=== PATIENT | male | born 1985 | race Caucasian/White ===

== ENCOUNTER 2018-12-15 17:49 | Emergency (ER) | payer SELFPAY ==
[2018-12-15 17:52] VITALS: BP 195/105; PULSE 111; RESP 22; TEMP 36.3; O2SAT 95; BMI 45.0
--- NOTE | 2018-12-15 18:02 | DI.RAD.S_ITS ---
PROCEDURE: XR RIBS LT MIN 3V W CXR1V INDICATIONS: rib/flank pain TECHNIQUE: 4 views of the left ribs were acquired, along with a single view chest. COMPARISON: None. FINDINGS: Surgical changes and devices: None. Bones and chest wall: No fractures or dislocations. No suspicious bony lesions. Overlying soft tissues appear unremarkable. Lungs and pleura: No pleural effusions or pneumothorax. Lungs appear clear. Mediastinum: Mediastinal contours appear normal. Heart size is normal. IMPRESSION: No displaced rib fractures visualized. No acute cardiopulmonary findings. Dictated by: Darlin Holloway M.D. on 12/15/2018 at 18:30 Approved by: Darlin Holloway M.D. on 12/15/2018 at 18:31
[2018-12-15] MEDS: IBUPROFEN 400 MG TABLET 800 MG PO (18:06)
[2018-12-15 19:30] VITALS: BP 175/90; PULSE 78; RESP 14; O2SAT 98
--- NOTE | 2018-12-15 19:38 | ED.BACK ---
HPI - Back Pain/Injury General Chief Complaint: Back Pain/Injury Stated Complaint: PULLED MUSCLE LOWER LEFT BACK Time Seen by Provider: 12/15/18 19:29 Source: patient Mode of arrival: ambulatory Limitations: no limitations History of Present Illness HPI Narrative: patient is a 33-year-old male with left-sided rib pain. He said he has had some nausea vomiting today as not really eating or drinking anything. He then had a coughing fit and heard something pop on his left side. It became extremely painful every time he took a breath. He did not fall there was no trauma. He has had some Motrin which he says helped the pain. He denies any shortness of breath or productive cough. He says these problems today with vomiting and watery diarrhea which he says is a little bit better. He denies any abdominal pain. MD Complaint: other ( Left-sided rib pain, nausea vomiting diarrhea) Related Data Previous Rx's Medication Instructions Recorded ondansetron 4 mg PO Q8H PRN #10 tab 12/15/18 Allergies Allergy/AdvReac Type Severity Reaction Status Date / Time No Known Allergies Allergy Uncoded 02/17/18 12:57 Review of Systems Review of Systems GENERAL: Denies chills, fatigue, malaise, fever, sweats, travel HEENT: Denies sinus pain, ear pain, sore throat, difficulty swallowing, neck pain RESPIRATORY: see HPI, rib pain CARDIOVASCULAR: Denies chest pain, palpitations, orthopnea, edema GASTROINTESTINAL: see HPI : Denies dysuria, frequency, incontinence, hematuria, urinary retention, flank pain. MUSCULOSKELETAL: Denies weakness, joint pain, or bony pain SKIN: No rash, no erythema, no pruritus NEUROLOGIC: Denies weakness, dizziness, headache, numbness, change in speech, confusion PSYCHIATRIC: No concerning psychosocial issues. 12 point review of systems is negative except for those stated above and HPI PFSH Surgical History History of third molar tooth extraction Family History Brother Age: 31 Drug abuse Father Age: 60 Diabetes mellitus Hypertension ETOHism Mother Age: 60 Hypertension Anxiety Drug abuse Social History Smoking Status: Never smoker Family History Brother Age: 31 Drug abuse Father Age: 60 Diabetes mellitus Hypertension ETOHism Mother Age: 60 Hypertension Anxiety Drug abuse Social History Smoking Status: Never smoker Exam Initial Vital Signs Initial Vital Signs: Vital Signs Temperature 97.3 F L 12/15/18 17:52 Pulse Rate 111 H 12/15/18 17:52 Respiratory Rate 22 12/15/18 17:52 Blood Pressure 195/105 H 12/15/18 17:52 Pulse Oximetry 95 12/15/18 17:52 GENERAL: well-appearing is active overweight male no acute distress HEENT: Head atraumatic,EOMI, pupils reactive, moist mucous membranes CARDIOVASCULAR: Regular rate and rhythm without murmurs, rubs or gallops. RESPIRATORY: Breath sounds equal bilaterally, no wheezes rales or rhonchi. tender left lateral lower ribs no sign of trauma no paradoxical movement tender to touch ABDOMEN: Soft, obese male no significant abdominal pain some mild epigastric pain no guarding no rebound : No CVA tenderness EXTREMITIES: Normal range of motion, no clubbing or edema. Neurovascularly intact NEUROLOGICAL: Alert and oriented x4.Normal gait and speech. SKIN: Warm, dry, no laceration, no petechiae, no rashes or lesions. Course Orders Ordered: ED Orders 12/15/18 18:02 XR ribs LT min 3V w CXR1V Stat Discontinued Medications Ibuprofen (Advil) 800 mg PO NOW ONE Stop: 12/15/18 18:00 Last Admin: 12/15/18 18:06 Dose: 800 mg Vital Signs - 8 hr 12/15/18 17:52 12/15/18 19:30 Temperature 97.3 F L Pulse Rate 111 H 78 Respiratory Rate 22 14 Blood Pressure 195/105 H Blood Pressure [Left Arm] 175/90 H Pulse Oximetry 95 98 MDM - Back Pain/Injury Imaging Data left rib XR: Radiologist's impression: PROCEDURE: XR RIBS LT MIN 3V W CXR1V INDICATIONS: rib/flank pain TECHNIQUE: 4 views of the left ribs were acquired, along with a single view chest. COMPARISON: None. FINDINGS: Surgical changes and devices: None. Bones and chest wall: No fractures or dislocations. No suspicious bony lesions. Overlying soft tissues appear unremarkable. Lungs and pleura: No pleural effusions or pneumothorax. Lungs appear clear. Mediastinum: Mediastinal contours appear normal. Heart size is normal. IMPRESSION: No displaced rib fractures visualized. No acute cardiopulmonary findings. Dictated by: Darlin Holloway M.D. on 12/15/2018 at 18:30 MDM Narrative Medical decision making narrative: Patient does not appear septic or toxic, he is tolerating oral fluids. Here mostly for rib pain which seems to be consistent with costochondritis from recent coughing vomiting episode. Discharge Plan Departure Patient Disposition: Home Clinical Impression: Gastroenteritis, Acute costochondritis Discharge Date/Time: 12/15/18 20:07 Interventions: ED Discharge Assessment Last Done: 12/15/18 20:06 Instructions: Costochondritis, DI for Viral Gastroenteritis -- Adult Activity Restrictions/Additional Instructions: 1) You have been diagnosed with costochondritis and gastroenteritis 2) What to do: Drink frequent but small amounts of fluids. I recommend Gatorade or a Gatorade-like product, as it has small amounts of sugar and salts that improve fluid retention. rib pain should start to improve in the next 1-2 weeks. May try splinting With a pillow. 3) Take medications as directed Zofran 4 mg every 6-8 hours if needed for nausea or vomiting Motrin 600 mg every 6-8 hours if needed for pain 4) Follow up with your primary care provider in 2-3 days 5) Return to ER if you should have any new or worsening symptoms such as, unable to hold down fluids despite use of anti-nausea medications and the small volume oral rehydration strategy. Prescriptions: New ondansetron 4 mg tablet,disintegrating 4 mg PO Q8H PRN (Reason: nausea and vomiting) Qty: 10 RF: 0 Referrals: [facility] [Provider Group]
--- NOTE | 2018-12-15 20:05 | PC.NURSE ---
Neuro intact. No acute distress. States he feels much improved.
== END 2018-12-15 20:07 | disposition home or self-care (01) ==
PROVIDERS: Emergency Provider Emergency Medicine
DX: K52.9 Noninfective gastroenteritis and colitis, unspecified (principal); M94.0 Chondrocostal junction syndrome [Tietze]
CPT/HCPCS: 71101; 99282; 99283

== ENCOUNTER 2020-11-25 16:08 | Emergency (ER) | payer SELFPAY ==
[2020-11-25 16:21] VITALS: BP 136/87; PULSE 85; RESP 20; TEMP 36.3; O2SAT 98; BMI 43.8
--- NOTE | 2020-11-25 16:25 | DI.RAD.S_ITS ---
PROCEDURE: XR LUMBAR SPINE 2-3V INDICATIONS: back pain TECHNIQUE: 3 views of the lumbar spine were acquired. COMPARISON: None. FINDINGS: Bones: 5 [id number] vertebrae are present. There is minimal levoconvex lumbar scoliotic curvature. No focal AP alignment abnormality is seen. No vertebral body compression fractures. No suspicious bony lesions. The disc heights are well preserved. Mild endplate irregularity and sclerosis can be seen at the L1-L2 level, with mild disc space narrowing. Soft tissues: Overlying bowel gas pattern is normal. No suspicious soft tissue calcifications. IMPRESSION: Focal L1-L2 degenerative change. Dictated by: Aleksander Perry M.D. on 11/25/2020 at 15:48 Approved by: Aleksander Perry M.D. on 11/25/2020 at 15:49
[2020-11-25] MEDS: ACETAMINOPHEN 325 MG TABLET 975 MG PO (16:29)
[2020-11-25] MEDS: IBUPROFEN 400 MG TABLET 800 MG PO (16:30)
[2020-11-25 18:48] VITALS: BP 141/82; PULSE 97; RESP 15; O2SAT 97
--- NOTE | 2020-11-25 19:48 | ED.BACK ---
HPI - Back Pain/Injury General Chief Complaint: Back Pain/Injury Stated Complaint: Back/Leg Pain Numbness Time Seen by Provider: 11/25/20 18:03 Source: patient Mode of arrival: Ambulatory Limitations: no limitations History of Present Illness HPI Narrative: 35-year-old male nonsmoker with noncontributory medical history presents for evaluation of low back pain started just a few hours before arrival. He states that he was in a seated position and when attempting get up he did so awkwardly and felt pain in his right lower back. He states it is worse when he moves and improves with rest. He denies any radiation into his lower extremities. He states it is sharp and stabbing and at its most intense, 8/10. He denies any bowel or bladder incontinence. He denies any numbness in his groin nor any lower extremity numbness, tingling or weakness. MD Complaint: back pain and back injury Onset (ago): hour(s) Duration: constant Similar Symptoms Previously: No Location: lumbar spine Severity: severe Quality: sharp and stabbing Radiation: none Relieving factors: immobilization Exacerbating factors: movement Context: turning/twisting Associated symptoms: denies other symptoms Related Data Previous Rx's Medication Instructions Recorded cyclobenzaprine 10 mg PO TID PRN #14 tab 11/25/20 hydrocodone-acetaminophen 1 tab PO Q4-6H PRN #10 tab 11/25/20 ketorolac 10 mg PO Q6H PRN #14 tab 11/25/20 Allergies Allergy/AdvReac Type Severity Reaction Status Date / Time No Known Drug Allergies Allergy Verified 11/25/20 16:27 Review of Systems Constitutional Constitutional: Denies chills, Denies fatigue, Denies fever(s), Denies frequent falls, Denies lethargy and Denies weakness Eyes Eyes: Denies change in vision, Denies eye discharge, Denies irritation and Denies loss of vision ENT Ears, Nose, Mouth, and Throat: Denies change in voice, Denies dizziness, Denies neck pain, Denies sore throat and Denies throat swelling Cardiovascular Cardiovascular: Denies chest pain, Denies irregular heart rhythm, Denies lightheadedness, Denies palpitations, Denies dyspnea, Denies dyspnea on exertion and Denies orthopnea Respiratory Respiratory: Denies cough, Denies dyspnea, Denies dyspnea on exertion and Denies wheezing Gastrointestinal Gastrointestinal: Denies abdominal pain, Denies change in bowel habits, Denies diarrhea, Denies nausea and Denies vomiting Musculoskeletal Musculoskeletal: Reports back pain, Denies neck pain and Denies numbness Integumentary/Breasts Skin/Breast: Denies pruritus, Denies erythema, Denies rash and Denies wounds Neurologic Neurologic: Denies behavioral changes, Denies confusion, Denies dizziness, Denies frequent falls, Denies loss of vision, Denies numbness and Denies weakness Psychiatric Psychiatric: Denies anxiety, Denies behavioral changes, Denies confusion, Denies depression, Denies homicidal ideation and Denies suicidal ideation Endocrine Endocrine: Denies fatigue, Denies flushing and Denies palpitations Hematologic/Lymphatic Hematologic/Lymphatic: Denies easy bruising Allergic/Immunologic Allergic/Immunologic: Denies urticaria, Denies throat swelling and Denies wheezing Patient History Surgical History History of third molar tooth extraction Family History Brother Age: 33 Drug abuse Father Age: 62 Diabetes mellitus Hypertension ETOHism Mother Age: 62 Hypertension Anxiety Drug abuse Social History Smoking Status: Never smoker Smoking Status: Never smoker alcohol intake frequency: holidays/special occasions only Substance Use Type: marijuana Exam Narrative Exam Narrative: GEN: AOx3 and in mild distress EYES: Pupils are equal, round, and reactive to light and accommodation. Extraoccular muscles are intact bilaterally. There is no subconjunctival hemorrhage or exudate. CHEST: Lungs are clear to auscultation bilaterally and free of wheezes, rales, or rhonchi. Heart rate is regular rhythm, there are no murmurs, clicks, rubs, or gallops. There is no chest wall tenderness. ABD: Abdomen is soft and nontender. There is no guarding or rebound. Bowel sounds are normal in all 4 quadrants. There is no mass or organomegaly. EXT: Full painless ROM of all extremities with no loss of sensation or strength. SKIN: Warm, pink, and dry. No erythema or rash BACK: filter press tender but free of any obvious external abnormalities. Patient exam notes decreased range of motion and muscle spasm, but no CVA tenderness, or vertebral point tenderness. There are no symptoms of cauda equina such as saddle anesthesia, and decreased reflexes, decreased sensation or strength. Initial Vital Signs Initial Vital Signs: Vital Signs Temperature 97.3 F L 11/25/20 16:21 Pulse Rate 85 11/25/20 16:21 Respiratory Rate 20 11/25/20 16:21 Blood Pressure 136/87 11/25/20 16:21 Pulse Oximetry 98 11/25/20 16:21 Course Course Course Narrative: Patient felt significant relief just with Tylenol and Motrin. Multiple etiologies of back pain considered including; Epidural abscess, cauda equina, mass occupying lesion, and other considered Patient given extensive return precautions and his questions have been answered to his apparent satisfaction Orders Ordered: ED Orders 11/25/20 16:25 XR lumbar spine 2-3V Stat Discontinued Medications Acetaminophen (Acetaminophen 325 Mg Tablet) 975 mg PO NOW ONE Stop: 11/25/20 16:27 Last Admin: 11/25/20 16:29 Dose: 975 mg Documented by: TONY Hydrocodone Bitart/Acetaminophen (Hydrocodone/Acet 5/325 Prepack) 1 bottle MISC SEEINSTR ONE Stop: 11/25/20 19:49 Last Admin: 11/25/20 19:59 Dose: 1 bottle Documented by: TONY Cyclobenzaprine HCl (Cyclobenzaprine 10 Mg Prepack) 1 bottle MISC SEEINSTR ONE Stop: 11/25/20 19:49 Last Admin: 11/25/20 19:59 Dose: 1 bottle Documented by: TONY Ibuprofen (Ibuprofen 400 Mg Tablet) 800 mg PO NOW ONE Stop: 11/25/20 16:27 Last Admin: 11/25/20 16:30 Dose: 800 mg Documented by: TONY Vital Signs Vital signs: Vital Signs - 8 hr 11/25/20 16:21 11/25/20 18:48 11/25/20 20:02 Temperature 97.3 F L Pulse Rate 85 97 H 77 Respiratory Rate 20 15 16 Blood Pressure 136/87 141/82 H 144/78 H Pulse Oximetry 98 97 97 Discharge Plan Departure Patient Disposition: Home Clinical Impression: Strain of lumbar region Qualifiers: Encounter type: initial encounter Qualified Code(s): S39.012A - Strain of muscle, fascia and tendon of lower back, initial encounter Acute back pain Qualifiers: Back pain location: low back pain Back pain laterality: right Sciatica presence: without sciatica Qualified Code(s): M54.5 - Low back pain Instructions: DI for Back Spasm Activity Restrictions/Additional Instructions: *You have been diagnosed with acute lumbar pain without radiculopathy *What to do: *Take medications as directed: Prescription sent to [facility] *Follow up with your primary care provider in 2-3 days, call for an appointment. Let them know you were seen in the Emergency Department and that we ask that you be seen in follow up *Return to ER if you should have any new, worsening or concerning symptoms such as weakness of your leg, loss of control of bowel or bladder, fever greater than 101 F or other bothersome symptoms You have been prescribed narcotic medications. While on these medications you cannot drive or operate heavy machinery. Additionally you cannot sign legal documents or perform any duties such as this. 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 Please understand that we cannot provide further refills of narcotics or controlled substances through the ED and your pain management will need to be through your Primary Care Provider Prescriptions: New cyclobenzaprine 10 mg tablet 10 mg PO TID PRN (Reason: muscle spasm) Qty: 14 RF: 0 hydrocodone-acetaminophen 5-325 mg tablet 1 tab PO Q4-6H PRN (Reason: pain) Qty: 10 RF: 0 ketorolac 10 mg tablet 10 mg PO Q6H PRN (Reason: pain) Qty: 14 RF: 0 Referrals: [facility] Resources [Outside] Stand Alone Forms: Work Release Note
[2020-11-25] MEDS: CYCLOBENZAPRINE 10 MG PREPACK 1 BOTTLE MISC (19:59)
[2020-11-25] MEDS: HYDROCODONE/ACET 5/325 PREPACK 1 BOTTLE MISC (19:59)
[2020-11-25 20:02] VITALS: BP 144/78; PULSE 77; RESP 16; O2SAT 97
== END 2020-11-25 20:02 | disposition home or self-care (01) ==
PROVIDERS: Emergency Provider Emergency Medicine
DX: S39.012A Strain of muscle, fascia and tendon of lower back, initial encounter (principal)
CPT/HCPCS: 72100; 99283